=== PATIENT | male | born 1990 | race Caucasian/White ===

== ENCOUNTER → 2021-05-29 | Outpatient (CLI) | payer OTHER | LOC: KOH-I 14:02 | DX: M54.9 Dorsalgia, unspecified (principal); M47.814 Spondylosis without myelopathy or radiculopathy, thoracic region | CPT/HCPCS: 72070; 72100 ==

== ENCOUNTER → 2021-07-11 | Outpatient (CLI) | payer OTHER | LOC: EMI 08:00 | DX: M51.26 Other intervertebral disc displacement, lumbar region (principal) | CPT/HCPCS: 72148 ==